=== PATIENT | male | born 1990 | race African-American/Black ===

== ENCOUNTER 2018-02-22 09:52 | Emergency (ER) | payer SELFPAY ==
[~2018-02-22] VITALS: Ht 177.8 cm; Wt 60.3 kg
[2018-02-22 10:00] VITALS: BP 137/83
--- NOTE | 2018-02-22 10:57 | RAD ---
Three-view left foot study Clinical indications: Left foot pain and swelling of first through fourth digits after kicking door. FINDINGS: No acute fracture or dislocation or osteolytic process is evident. IMPRESSION: No acute fracture. Electronically signed by: Jorge Ramos MD (02/22/2018 10:53 AM) [facility]
--- NOTE | 2018-02-22 11:01 | PHYS DOC ---
Past Medical History Past Medical History: No Pertinent History Past Surgical History: No Surgical History Alcohol Use: Occasionally Drug Use: Marijuana Adult General Chief Complaint Chief Complaint: FOOT INJURY PAIN [facility] HPI Patient is a 27 year old male who presents with foot pain after he kicked a door last night. He does have bruising to his toes. He states it is painful to walk or touch the extremities. He denies any other injury. Review of Systems Review of Systems Constitutional: Denies fever or chills [] Respiratory: Denies cough or shortness of breath [] Cardiovascular: No additional information not addressed in HPI [] GI: Denies abdominal pain, nausea, vomiting, bloody stools or diarrhea [] : Denies dysuria or hematuria [] Musculoskeletal: See history of present illness Integument: Denies rash or skin lesions [] Neurologic: Denies headache, focal weakness or sensory changes [] Endocrine: Denies polyuria or polydipsia [] All other systems were reviewed and found to be within normal limits, except as documented in this note. Allergies Allergies Allergies Coded Allergies Type Severity Reaction Last Updated Verified No Known Drug Allergies 02/22/18 No Physical Exam Physical Exam Constitutional: Well developed, well nourished, no acute distress, non-toxic appearance. [] Cardiovascular:Heart rate regular rhythm, no murmur [] Lungs & Thorax: Bilateral breath sounds clear to auscultation [] Skin: Warm, dry, no erythema, no rash. [] Back: No tenderness, no CVA tenderness. [] Extremities: tenderness to his first third and fourth phalanges with ecchymosis noted, no cyanosis, no clubbing, ROM intact, no edema. [] Neurologic: Alert and oriented X 3, normal motor function, normal sensory function, no focal deficits noted. [] Psychologic: Affect normal, judgement normal, mood normal. [] Current Patient Data Vital Signs Vital Signs Date Time Temp Pulse Resp B/P (MAP) Pulse Ox O2 Delivery O2 Flow Rate FiO2 02/22/18 10:00 98.3 67 12 137/83 (101) 98 Room Air 98.3 EKG EKG [] Radiology/Procedures Radiology/Procedures []PATIENT: ANJELICA ARCHERACCOUNT: [id number]#: [id number] : 1990 LOCATION: ER AGE: 27 SEX: M EXAM STATUS: REG ER ORD. PHYSICIAN: HOANG RAMIREZ APRN REASON: kicked door PROCEDURE: FOOT LEFT 3V Three-view left foot study Clinical indications: Left foot pain and swelling of first through fourth digits after kicking door. FINDINGS: No acute fracture or dislocation or osteolytic process is evident. IMPRESSION: No acute fracture. Electronically signed by: Maximilian Ramos MD (02/22/2018 10:53 AM) [facility] DICTATED and SIGNED BY: MAXIMILIAN RAMOS MD DATE: 02/22/18 1052 Course & Med Decision Making Course & Med Decision Making Pertinent Labs and Imaging studies reviewed. (See chart for details) []The patient was placed in a postop shoe. Dragon Disclaimer Dragon Disclaimer This electronic medical record was generated, in whole or in part, using a voice recognition dictation system. Departure Departure Impression: Primary Impression: Contusion Disposition: 01 HOME, SELF-CARE Condition: STABLE Referrals: NO PCP (PCP) Patient Instructions: Contusion Additional Instructions: Wear the postop shoe for comfort. You may use ice or heat at this point for comfort. Take ibuprofen or Tylenol. Follow-up with her primary care provider as needed or return to the emergency department if worsening. HOANG RAMIREZ APRN Feb 22, 2018 11:00
== END 2018-02-22 11:10 | disposition home or self-care (01) ==
LOC: ER 09:52
DX: S90.112A Contusion of left great toe without damage to nail, initial encounter (principal); S90.122A Contusion of left lesser toe(s) without damage to nail, initial encounter; W20.8XXA Other cause of strike by thrown, projected or falling object, initial encounter; Y93.89 Activity, other specified; Y92.89 Other specified places as the place of occurrence of the external cause; Y99.8 Other external cause status
CPT/HCPCS: 73630; 99284